=== PATIENT | female | born 1995 | race Two or more races ===

== ENCOUNTER 2016-12-02 23:05 | Emergency (ER) | payer OTHER ==
[~2016-12-02] VITALS: Ht 162.6 cm; Wt 68.0 kg
[2016-12-02 23:35] VITALS: BP 128/72
--- NOTE | 2016-12-03 00:05 | PHYS DOC ---
Past Medical History Past Medical History: No Pertinent History Past Surgical History: Alcohol Use: Rarely Drug Use: None Adult General Chief Complaint Chief Complaint: ANKLE PROBLEM HPI HPI Patient is a 21 year old female presents emergency department stating that she has having left ankle pain and discomfort. She denies any knee pain or discomfort. Patient states that she fell down 5 stairs this morning at 10:30. She states at that time she was able to ambulate on the ankle although now she is stating that she has increased pain with ambulation. She does have some swelling noted on the left lateral ankle. Peripheral pulses are 2+ cap refill brisk less than 2 seconds. No bruising or discoloration noted. Patient's for pain or discomfort. She has not placed ice packs on the ankle either. No elevation noted from patient. Review of Systems Review of Systems Constitutional: Denies fever or chills [] Eyes: Denies change in visual acuity, redness, or eye pain [] HENT: Denies nasal congestion or sore throat [] Respiratory: Denies cough or shortness of breath [] Cardiovascular: No additional information not addressed in HPI [] GI: Denies abdominal pain, nausea, vomiting, bloody stools or diarrhea [] : Denies dysuria or hematuria [] Musculoskeletal: Denies back pain. C/o left ankle pain, denies left knee pain Integument: Denies rash or skin lesions [] Neurologic: Denies headache, focal weakness or sensory changes [] Allergies Allergies Allergies Coded Allergies Type Severity Reaction Last Updated Verified No Known Drug Allergies 12/09/13 No Physical Exam Physical Exam Constitutional: Well developed, well nourished, no acute distress, non-toxic appearance. [] HENT: Normocephalic, atraumatic, bilateral external ears normal, oropharynx moist, no oral exudates, nose normal. [] Eyes: PERRLA, EOMI, conjunctiva normal, no discharge. [] Neck: Normal range of motion, no tenderness, supple, no stridor. [] Cardiovascular:Heart rate regular rhythm, no murmur [] Lungs & Thorax: Bilateral breath sounds clear to auscultation [] Skin: Warm, dry, no erythema, no rash. [] Back: No tenderness Extremities: left lateral ankle tenderness, no cyanosis, no clubbing, ROM intact , no edema. No discoloration patient does have swelling noted. She is able to move her toes without difficulty. Peripheral pulses 2+ cap refill brisk less than 2 seconds. No knee discomfort noted. Neurologic: Alert and oriented X 3, normal motor function, normal sensory function, no focal deficits noted. [] Psychologic: Affect normal, judgement normal, mood normal. [] Current Patient Data Vital Signs Vital Signs Date Time Temp Pulse Resp B/P Pulse Ox O2 Delivery O2 Flow Rate FiO2 12/02/16 23:35 98.2 72 18 100 Room Air 98.2 EKG EKG [] Radiology/Procedures Radiology/Procedures [] Course & Med Decision Making Course & Med Decision Making Pertinent Labs and Imaging studies reviewed. (See chart for details) Irwin negative for any fractures per Dr. Lemons. Patient will be placed in a posterior short leg splint and will be provided with crutches. Patient will be provided with orthopedic name and number to follow up with. Recommended ice packs on 20 minutes off 20 minutes several times a day elevation as much as possible. Also recommended no weight bearing to the left ankle. Recommended ibuprofen 800 mg every 8 hours. Patient agrees with discharge instructions, treatment regimens and follow-up recommendations. Since symptoms to return back to emergency department as been provided. [] Dragon Disclaimer Dragon Disclaimer This electronic medical record was generated, in whole or in part, using a voice recognition dictation system. Departure Departure Impression: Primary Impression: Left ankle sprain Disposition: 01 HOME, SELF-CARE Condition: STABLE Referrals: NO PCP (PCP) JORGE ALBERTO MAYEN MD Patient Instructions: Ankle Sprain, [id number], Crutch Use, [id number], Splint Care-Brief Additional Instructions: Your ankle x-rays were negative for any fractures or abnormalities. There will be an over read completed on your x-ray tomorrow by the radiologist. If there is any change in visual be notified. Activity as tolerated. No weightbearing on the left ankle. Use the crutches to help with ambulation. Ice packs on 20 minutes off 20 minutes several times a day. Elevation as much as possible. Ibuprofen 800 mg every 8 hours with food, stop taking few develop an upset stomach. 'Do not remove the splint this will be done when you followup with orthopedic Follow-up with orthopedic within the next week. Return back to emergency prior signs symptoms of become worse. Splinting Splinting : Location: left ankle Hand-Made Type: orthoglass Splint: posterior short leg splint Pre-Proc Neuro Vasc Exam: normal Post-Proc Neuro Vasc Exam: normal SIMON LOW NP Dec 03, 2016 00:05
--- NOTE | 2016-12-03 07:55 | RAD ---
Left ankle, 3 views, 12/02/2016: History: Ankle pain after a fall No fracture or dislocation is identified. There is mild soft tissue swelling laterally. IMPRESSION: No acute bony abnormality is detected.
== END 2016-12-03 00:40 | disposition home or self-care (01) ==
LOC: ER 23:05
DX: S93.402A Sprain of unspecified ligament of left ankle, initial encounter (principal); W10.8XXA Fall (on) (from) other stairs and steps, initial encounter; Y93.89 Activity, other specified; Y99.8 Other external cause status; Y92.89 Other specified places as the place of occurrence of the external cause
CPT/HCPCS: 29515; 73610; 99284-25

== ENCOUNTER 2021-04-03 13:58 | Observation (INO) | payer OTHER ==
[2019-06-10 14:00] VITALS: BP 103/59
[~2021-04-03 13:58] MED LIST: CEPH-264 PO
[2021-04-03 15:01] LABS: BILIRUBIN,URINE NEGATIVE (NEG); CLARITY,URINE CLEAR; COLOR,URINE YELLOW; NITRITE,URINE NEGATIVE (NEG); PROTEIN,URINE NEGATIVE (NEG-TRACE)
[2021-04-03 15:08] LABS: BACTERIA,URINE MODERATE /HPF (0-FEW); RBC,URINE OCC /HPF (0-2)
== END 2021-04-03 15:40 | disposition home or self-care (01) ==
LOC: 3 SO LND 13:58
PROVIDERS: ADMIT Obstetrics & Gynecology; ATTEND Obstetrics & Gynecology
DX: O36.8120 Decreased fetal movements, second trimester, not applicable or unspecified (principal); O26.892 Other specified pregnancy related conditions, second trimester; L29.2 Pruritus vulvae; Z3A.24 24 weeks gestation of pregnancy; Z98.891 History of uterine scar from previous surgery; Z79.899 Other long term (current) drug therapy
CPT/HCPCS: 59025; 81001; 87086; G0378; G0379; 87077